=== PATIENT | male | born 1960 | race Caucasian/White ===

== ENCOUNTER 2017-04-23 05:36 | Day surgery (SDC) | payer OTHER ==
[~2017-04-23] VITALS: Ht 177.8 cm; Wt 69.3 kg
[~2017-04-23 05:36] MED LIST: LANS15TA6 PO; METO10TA2 PO
[2017-04-23] MEDS ORDERED: LACTATED RINGERS 1,000 ML IV SCH (06:13)
[2017-04-23 06:42] VITALS: BP 112/75
[2017-04-23] MEDS ORDERED: PROPOFOL 10 MG/ML, 20ML ONE (07:31)
== END 2017-04-23 09:40 ==
LOC: OUT 05:36
PROVIDERS: ATTEND Internal Medicine Gastroenterology
DX: K22.2 Esophageal obstruction (principal); Z85.01 Personal history of malignant neoplasm of esophagus; Z98.0 Intestinal bypass and anastomosis status; Z90.49 Acquired absence of other specified parts of digestive tract; Z79.899 Other long term (current) drug therapy
CPT/HCPCS: 43247; 43249; 99152; C1725; J2704; J7120